=== PATIENT | female | born 1965 | race African-American/Black ===

== ENCOUNTER 2020-07-03 18:08 | Emergency (ER) | payer OTHER ==
[2020-07-03 18:51] VITALS: BMI 40.4
[2020-07-03 21:24] VITALS: BP 128/86; PULSE 86; TEMP 97.9
== END 2020-07-03 21:22 | disposition home or self-care (01) ==
LOC: JER 18:08
DX: M25.561 Pain in right knee (principal)
CPT/HCPCS: 73562-TC-RT-FY; 93971-TC; 99284-25

== ENCOUNTER 2022-02-09 07:31 | Day surgery (SDC) | payer OTHER ==
[2022-02-05 13:26] VITALS: BMI 42.3
[2022-02-09] MEDS ORDERED: CEFAZOLIN 2 GM in DEXTROSE 5%-WATER - 50 ML IVPB ONE (07:41)
[2022-02-09] MEDS ORDERED: THROMBIN (BOVINE) 5,000 UNIT VIAL TP ONE (07:44)
[2022-02-09] MEDS ORDERED: ceFAZolin SODIUM 1 GM VIAL ONE ×2 (07:44→09:59)
[2022-02-09] MEDS ORDERED: MIDAZOLAM HCL 2 MG/2 ML SINGLE DOSE VIAL ONE (09:14)
[2022-02-09] MEDS ORDERED: SODIUM CHLORIDE 0.9% P/F 10 ML VIAL IJ ONE (09:14)
[2022-02-09] MEDS ORDERED: BUPIVACAINE HCL/PF 0.5% (5 MG/ML) 30 ML VIAL IJ ONE (09:14)
[2022-02-09] MEDS ORDERED: BUPIVACAINE HCL 50 ML ONE (09:14)
[2022-02-09] MEDS ORDERED: BUPIVICAINE 0.25%/MORPH PF/KETOROLAC - 51ML DISP.SYRINGE IA ONE ×2 (09:30→11:01)
[2022-02-09] MEDS ORDERED: CELECOXIB 200 MG CAPSULE PO ONE (09:30)
[2022-02-09] MEDS ORDERED: SUCCINYLCHOLINE CHLORIDE 200 MG/10 ML SYRINGE ONE (09:56)
[2022-02-09] MEDS ORDERED: ONDANSETRON 4 MG/2 ML VIAL ONE (09:59)
[2022-02-09] MEDS ORDERED: TRANEXAMIC ACID 1000 MG/10 ML VIAL ONE (09:59)
[2022-02-09] MEDS ORDERED: TRANEXAMIC ACID 1000 MG/10 ML VIAL IVPUSH ONE (10:00)
[2022-02-09] MEDS ORDERED: ONDANSETRON 4 MG/2 ML VIAL IVPUSH PRN ×2 (10:03→11:53)
[2022-02-09] MEDS ORDERED: PROPOFOL 80 ML ONE (10:06)
[2022-02-09] MEDS ORDERED: LACTATED RINGERS SOLUTION 1,000 ML IV SCH (10:15)
[2022-02-09] MEDS ORDERED: oxyCODONE HCL 5 MG TABLET PO PRN (11:53)
[2022-02-09] MEDS ORDERED: ACETAMINOPHEN 500 MG TABLET (FP) ONE (12:28)
[2022-02-09] MEDS: ACETAMINOPHEN 500 MG TABLET (FP) PO SCH ×3 (12:30→22:59)
[2022-02-09] MEDS: CEFAZOLIN SODIUM 2 GM in DEXTROSE 5%-WATER 100 ML IVPB SCH (17:26)
[2022-02-09] MEDS: SENNOSIDES/DOCUSATE COMBO (SENNA PLUS) TABLET (UD) PO SCH (22:02)
[2022-02-09] MEDS: oxyCODONE HCL 5 MG TABLET PO PRN (22:52)
[2022-02-10] MEDS: CEFAZOLIN SODIUM 2 GM in DEXTROSE 5%-WATER 100 ML IVPB SCH (02:05)
[2022-02-10] MEDS: ACETAMINOPHEN 500 MG TABLET (FP) PO SCH ×2 (06:25→13:00)
[2022-02-10] MEDS ORDERED: ASPIRIN 325 MG TABLET PO SCH (08:00)
[2022-02-10] MEDS: SENNOSIDES/DOCUSATE COMBO (SENNA PLUS) TABLET (UD) PO SCH (09:02)
[2022-02-10] MEDS ORDERED: HYDROCHLOROTHIAZIDE 12.5 MG CAPSULE (FP) PO SCH (10:00)
[2022-02-10] MEDS ORDERED: LOSARTAN POTASSIUM 25 MG TABLET PO SCH (10:00)
[2022-02-10] MEDS ORDERED: MULTIVITAMINS (DAILY MVI) TABLET (FP) PO SCH (10:00)
[2022-02-10] MEDS ORDERED: PANTOPRAZOLE 40 MG TABLET PO SCH (10:00)
[2022-02-10] MEDS: oxyCODONE HCL 5 MG TABLET PO PRN (11:04)
[2022-02-10 14:17] VITALS: BP 96/50; PULSE 85; RESP 17; TEMP 98.8
== END 2022-02-10 16:12 | disposition home health service (06) ==
LOC: FASUSAT 07:31 → FM/S 13:13 → FASUSAT 02-10 16:12
PROVIDERS: ATTEND Orthopaedic Surgery
PROC: 8E0Y0CZ Robotic Assisted Procedure of Lower Extremity, Open Approach (ICD-10-PCS; 2022-02-09)
PROC: 0SRC0L9 Replacement of Right Knee Joint with Medial Unicondylar Synthetic Substitute, Cemented, Open Approach (ICD-10-PCS; principal; 2022-02-09 10:13)
DX: M17.11 Unilateral primary osteoarthritis, right knee (principal)
CPT/HCPCS: 20985; 27446; C1776; S2900; 73560-TC-RT-FY; 84703; 94760; 97010-GP; 97116-GP; 97162-GP; C1889